=== PATIENT | female | born 1970 | race Two or more races ===

== ENCOUNTER 2022-02-17 04:01 | Day surgery (SDC) | payer OTHER ==
[2022-02-16 08:09] VITALS: BMI 30.8
[2022-02-17] MEDS ORDERED: PROPOFOL 40 ML ONE (14:11)
[2022-02-17] MEDS ORDERED: MIDAZOLAM HCL 2 MG/2 ML SINGLE DOSE VIAL ONE (14:11)
[2022-02-17] MEDS ORDERED: LIDOCAINE HCL/PF 2% SDV 5ML VIAL ONE (14:11)
[2022-02-17] MEDS ORDERED: ONDANSETRON 4 MG/2 ML VIAL ONE (14:11)
[2022-02-17] MEDS ORDERED: KETOROLAC TROMETHAMINE 30 MG/1 ML VIAL ONE (14:12)
[2022-02-17] MEDS ORDERED: oxyCODONE HCL 5 MG TABLET PO PRN ×3 (14:16→15:45)
[2022-02-17] MEDS ORDERED: ONDANSETRON 4 MG/2 ML VIAL IVPUSH PRN ×2 (14:16→15:45)
[2022-02-17] MEDS ORDERED: LACTATED RINGERS SOLUTION 1,000 ML IV SCH (14:30)
[2022-02-17 15:29] VITALS: RESP 18
[2022-02-17] MEDS ORDERED: ELECTROLYTE-148 SOLN 1,000 ML IV SCH (15:45)
[2022-02-17] MEDS ORDERED: IBUPROFEN 800 MG/8 ML IJ IVPB PRN (15:45)
[2022-02-17] MEDS ORDERED: IBUPROFEN 600 MG TABLET (FP) PO PRN (15:45)
[2022-02-17 15:52] VITALS: BP 118/64; PULSE 61; TEMP 97.5
== END 2022-02-17 18:25 | disposition home or self-care (01) ==
LOC: JASU-SURG 04:01
PROVIDERS: ATTEND Obstetrics & Gynecology
PROC: 0UP Female Reproductive System, Removal (ICD-10-PCS; principal; 2022-02-17 14:00)
DX: Z30.432 Encounter for removal of intrauterine contraceptive device (principal)
CPT/HCPCS: 88305-TC